=== PATIENT | male | born 1955 ===

== ENCOUNTER 2019-01-04 18:52 | Outpatient (CLI) | payer OTHER | END 2019-01-04 19:19 | disposition home or self-care (01) | LOC: LAB 18:52 | DX: R97.20 Elevated prostate specific antigen [PSA] (principal) ==

== ENCOUNTER 2019-02-07 07:22 | Outpatient (CLI) | payer OTHER | END 2019-02-07 07:41 | disposition home or self-care (01) | LOC: SONOGRAMA 07:22 | DX: D29.1 Benign neoplasm of prostate (principal); R97.20 Elevated prostate specific antigen [PSA] ==